=== PATIENT | female | born 1990 | race Caucasian/White ===

== ENCOUNTER 2017-10-01 12:14 | Emergency (ER) | payer MEDICAID ==
[2017-10-01 13:42] LABS: Pregnancy Test - Urine (BHCG) Negative (Negative); Pregu Control Background? CLEAR/WHITE (CLR/WHITE); Pregu Control Bar Appear? YES (CONTROL BAR); Specific Gravity 1.008 (1.002-1.036)
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
== END 2017-10-01 14:36 | disposition home or self-care (01) ==
LOC: MADERS 12:14
DX: S39.012A Strain of muscle, fascia and tendon of lower back, initial encounter (principal); I10 Essential (primary) hypertension; F41.9 Anxiety disorder, unspecified; F32.9 Major depressive disorder, single episode, unspecified; F17.210 Nicotine dependence, cigarettes, uncomplicated; V89.2XXA Person injured in unspecified motor-vehicle accident, traffic, initial encounter
CPT/HCPCS: 72100; 81025

== ENCOUNTER 2020-11-24 10:16 | Emergency (ER) | payer MEDICAID ==
[2020-11-24] MEDS ORDERED: Ketorolac Tromethamine 30 MG/ML VIAL ONE (11:04)
[2020-11-24 11:36] LABS: Bilirubin Negative (Negative); Blood, Urine Trace (Negative); Clarity Clear (Clear); Glucose, Urine (Dipstick) Negative (Negative); Ketone, Urine Negative (Negative); Leukocyte Negative (Negative); Nitrite Negative (Negative); Protein, Urine (Dipstick) Negative (Neg-Trace); Urobilinogen 0.2 mg/dL (Less than 2)
[2020-11-24 11:37] LABS: Pregnancy Test - Urine (BHCG) Negative (Negative); Pregu Control Background? CLEAR/WHITE (CLR/WHITE); Pregu Control Bar Appear? YES (CONTROL BAR)
[2020-11-24 11:41] LABS: Bacteria/HPF Rare-Few HPF (None Seen); RBC/HPF 0-3 HPF (0-3); WBC/HPF 0-3 HPF (0-3)
== END 2020-11-24 11:52 | disposition home or self-care (01) ==
LOC: MADERS 10:16
DX: M54.5 Low back pain (principal); F17.210 Nicotine dependence, cigarettes, uncomplicated; Z79.899 Other long term (current) drug therapy
CPT/HCPCS: 81003; 81015; 81025; 96372; 99283; J1885

== ENCOUNTER 2021-07-12 16:20 | Emergency (ER) | payer MEDICAID, SELFPAY ==
[2021-07-12] MEDS ORDERED: Ibuprofen 800 MG TAB ONE (17:00)
[2021-07-12 17:21] LABS: Pregnancy Test - Urine (BHCG) Negative (Negative); Pregu Control Background? CLEAR/WHITE (CLR/WHITE); Pregu Control Bar Appear? YES (CONTROL BAR); Specific Gravity 1.009 (1.002-1.036)
[2021-07-12] MEDS ORDERED: Bicillin LA 1.2 MILLION UNITS/2 ML SYRINGE ONE (17:33)
== END 2021-07-12 18:09 | disposition home or self-care (01) ==
LOC: MADERS 16:20
DX: J02.0 Streptococcal pharyngitis (principal); F17.210 Nicotine dependence, cigarettes, uncomplicated
CPT/HCPCS: 81025; 87430; 87804; 94760; 96372; J0561

== ENCOUNTER 2022-02-19 10:25 | Emergency (ER) | payer SELFPAY ==
[2022-02-19 11:21] LABS: Anion Gap 11 mmol/L (10-20); BUN (Urea Nitrogen) 10 mg/dL (7.0-18.7); Calc. Creatinine Clearance 0 mL/min (70-130); Carbon Dioxide 31 mmol/L (22-29); Chloride 97 mmol/L (98-107); Estimated GFR 98; Glucose 104 mg/dL (70-105); Sodium 135 mmol/L (136-145)
[2022-02-19 11:23] LABS: PTT 34.1 sec (22.9-36.1)
[2022-02-19 11:25] LABS: D-Dimer Test 1.49 *mcg/mL (0.27-0.43)
[2022-02-19 11:27] LABS: Band 1 % (5-11); Hemoglobin 13.6 g/dL (12.0-16.0); Lymphocytes 19 % (21-51); MDiff Complete? YES; Mean Corpuscular HGB CONC 31.4 g/dL (32.0-36.0); Mean Corpuscular Hemoglobin 26.2 pg (27.0-31.0); Mean Corpuscular Volume 83.4 fl (78.0-98.0); Mean Platelet Volume 6.5 fL (7.4-10.4); Monocytes 14 % (0-10); Neutrophil 66 % (42-75); Platelet Count 362 10x3/uL (130-400); RBC Distribution Width 13.1 % (11.5-14.5); RBC Morphology Normal; White Blood Cell (WBC) Count 6.1 10x3/uL (4.8-10.8)
[2022-02-19] MEDS ORDERED: Ketorolac Tromethamine 30 MG/ML VIAL ONE (14:06)
== END 2022-02-19 14:12 | disposition short-term general hospital (02) ==
LOC: MADERS 10:25
DX: R22.41 Localized swelling, mass and lump, right lower limb (principal); F17.210 Nicotine dependence, cigarettes, uncomplicated
CPT/HCPCS: 36415; 80048; 85025; 85379; 85730; 96374; J1885

== ENCOUNTER 2023-12-18 14:52 | Emergency (ER) | payer MEDICAID, SELFPAY ==
[2023-12-18 15:19] LABS: Bilirubin Small (Negative); Blood, Urine Trace (Negative); Clarity Cloudy (Clear); Glucose, Urine (Dipstick) Negative (Negative); Ketone, Urine Negative (Negative); Leukocyte Moderate (Negative); Nitrite Positive (Negative); Protein, Urine (Dipstick) 30 mg/dL (Neg-Trace); Urobilinogen 0.2 mg/dL (Less than 2); pH, Urine 5.5 (5.0-9.0)
[2023-12-18 15:21] LABS: Specific Gravity, Urine 1.026 (1.002-1.036)
[2023-12-18] MEDS ORDERED: Ibuprofen 800 MG TAB ONE (15:22)
[2023-12-18 15:33] LABS: Bacteria/HPF 4+ HPF (None Seen); CAUTI Indications for Culture Dysuria,urgency,freq; RBC/HPF 0-3 HPF (0-3); Squamous Epithelial 0-3 HPF (0-3); WBC/HPF Greater Than 50 HPF (0-3)
[2023-12-18 15:34] LABS: Urine Culture Reflex Yes Yes
[2023-12-18 15:39] LABS: Pregnancy Test - Urine (BHCG) Negative (Negative); Pregu Control Background? CLEAR/WHITE (CLR/WHITE); Pregu Control Bar Appear? YES (CONTROL BAR); Specific Gravity 1.026 (1.002-1.036)
== END 2023-12-18 15:58 | disposition home or self-care (01) ==
LOC: MADERS 14:52
DX: N39.0 Urinary tract infection, site not specified (principal); Z55.6 Problems related to health literacy; F17.210 Nicotine dependence, cigarettes, uncomplicated
CPT/HCPCS: 81001; 81025; 87077; 87086; 87186; 99283